=== PATIENT | male | born 1985 | race Caucasian/White ===

== ENCOUNTER 2017-05-01 03:30 | Emergency (ER) | payer MEDICAID ==
[~2017-05-01] VITALS: Ht 180.3 cm; Wt 72.7 kg
[~2017-05-01 03:30] MED LIST: NO HOME MEDS
[2017-05-01] MEDS ORDERED: naproxen 500mg tablet PO ONE (04:20)
[2017-05-01] MEDS ORDERED: sulfamethoxazole/trimethoprim DS (800/160mg) tablet PO ONE (04:20)
[2017-05-01] MEDS ORDERED: HYDROcodone/acetaminophen 10/325mg tab PO ONE (04:20)
[2017-05-01] MEDS ORDERED: HYDR-569 PO (04:48)
[2017-05-01] MEDS ORDERED: SULF1TAB48 PO (04:48)
[2017-05-01] MEDS ORDERED: NAPR-56 PO (04:48)
[2017-05-01 05:07] VITALS: BP 109/64
== END 2017-05-01 05:11 | disposition home or self-care (01) ==
LOC: ER 03:30
DX: L02.512 Cutaneous abscess of left hand (principal); F12.10 Cannabis abuse, uncomplicated; F11.10 Opioid abuse, uncomplicated; F15.10 Other stimulant abuse, uncomplicated
CPT/HCPCS: 26010; 99284; A6449

== ENCOUNTER 2017-07-12 15:25 | Inpatient (IN) | payer MEDICAID ==
[~2017-07-12] VITALS: Ht 180.3 cm; Wt 155.0 kg
[~2017-07-12 15:25] MED LIST changes: +HYDR-569 PO
[2017-07-12 16:11] LABS: BASOPHILS % (AUTO) 0.3 % (0-1); EOSINOPHILS # (AUTO) 0.1 X10'3 (0-0.9); HEMATOCRIT 44.2 % (42.0-52.0); HEMOGLOBIN 14.9 g/dl (14.0-17.9); LYMPHOCYTES # (AUTO) 1.9 X10'3 (1.1-4.8); LYMPHOCYTES % (AUTO) 14.6 % (21-51); MEAN CORPUSCULAR HEMOGLOBIN 31.1 PG (27.0-31.0); MEAN CORPUSCULAR HGB CONC 33.7 % (33.0-36.5); MEAN CORPUSCULAR VOLUME 92.1 FL (78-98); MEAN PLATELET VOLUME 7.6 FL (7.4-10.4); MONOCYTES # (AUTO) 0.7 X10'3 (0-0.9); MONOCYTES % (AUTO) 5.8 % (2-12); NEUTROPHILS % (AUTO) 78.3 % (42-75); PLATELET COUNT 328 X10'3 (140-440); RED CELL DISTRIBUTION WIDTH 13.6 % (11.5-14.5); WHITE BLOOD COUNT 12.8 X10'3 (4.5-11.0)
[2017-07-12] MEDS ORDERED: CefTRIAXone/D5W-Rocephin 1gm 50 ML IV ONE (16:15)
[2017-07-12 16:25] LABS: ALANINE AMINOTRANSFERASE 156 U/L (12-78); ALBUMIN 3.4 G/DL (3.4-5.0); ALBUMIN/GLOBULIN RATIO 0.8 (1.1-1.5); ALKALINE PHOSPHATASE 123 IU/L (46-116); ANION GAP 5 (8-16); ASPARTATE AMINO TRANSFERASE 70 U/L (10-37); BILIRUBIN,TOTAL 0.3 MG/DL (0.1-1.0); BLOOD UREA NITROGEN 14 MG/DL (7-18); BUN/CREATININE RATIO 12.4 (5.4-32.0); CALCIUM 9.3 MG/DL (8.5-10.1); CHLORIDE 105 MMOL/L (99-107); CREATININE 1.13 MG/DL (0.60-1.10); GLUCOSE 106 MG/DL (70-104); POTASSIUM 4.1 MMOL/L (3.5-5.1); SODIUM 142 MMOL/L (135-145); TOTAL CARBON DIOXIDE 32.3 MMOL/L (24-32); TOTAL PROTEIN 7.7 G/DL (6.4-8.2); eGFR 76 ML/MIN
[2017-07-12] MEDS ORDERED: ceFAZolin 1GM/D5W- ADD-VANTAGE 50 ML IV ONE (16:26)
[2017-07-12] MEDS ORDERED: iohexol 300mg/ml 100ml inj. ONE (16:42)
[2017-07-12 16:45] LABS: CLARITY,URINE CLEAR (Clear); COLOR,URINE YELLOW (Yellow); GLUCOSE, URINE NEGATIVE (Neg); KETONES,URINE NEGATIVE (Neg); LEUKOCYTE ESTERASE ,URINE NEGATIVE (Neg); NITRITES, URINE NEGATIVE (Neg); OCCULT BLOOD,URINE NEGATIVE (Neg); PROTEIN,URINE TRACE mg/dl (Neg)
[2017-07-12 16:45] LABS: INR 0.9 INR; PARTIAL THROMBOPLASTIN TIME 27 SECONDS (22-32); PROTHROMBIN TIME 9.4 SECONDS (9.0-12.0)
[2017-07-12 16:46] LABS: UA COLLECTION TYPE CLN CATCH MIDSTREAM
[2017-07-12 16:56] LABS: BACTERIA,URINE NONE SEEN /HPF (Neg); MUCUS STRANDS MODERATE /LPF (Neg); RBC,URINE 0-2 /HPF (0-2); SQUAMOUS EPITHELIAL CELL,UR FEW /LPF (FEW); WBC,URINE 0-4 /HPF (0-4)
[2017-07-12] MEDS ORDERED: CEPH500C5 PO (17:59)
[2017-07-12] MEDS ORDERED: DOXY100C2 PO (17:59)
[2017-07-12] MEDS ORDERED: vancomycin inj 1,000 MG in normal saline 250ml IV soln 250 ML IV STA (21:05)
[2017-07-12] MEDS ORDERED: vancomycin/NS 1 GM ADD-VANTAGE 250 ML X 1 DOSE IV ONE (21:10)
[2017-07-12] MEDS ORDERED: mag hydrox/Alum hydrox/simeth 30ml oral suspension PO PRN (22:55)
[2017-07-12] MEDS ORDERED: bisacodyl 10mg suppository rectal RC PRN (22:55)
[2017-07-12] MEDS ORDERED: ondansetron/PF 4mg/2ml inj IV PRN (22:55)
[2017-07-12] MEDS ORDERED: morphine 4 MG/ML inj SYRINge IV PRN (22:55)
[2017-07-12] MEDS ORDERED: acetaminophen 325mg tablet PO PRN (22:55)
[2017-07-12] MEDS ORDERED: magnesium hydroxide 30ml (MOM) UD suspension PO PRN (22:55)
[2017-07-12] MEDS: HYDROcodone/acetaminophen 5mg/325mg tablet PO PRN (23:02)
[2017-07-12] MEDS: dextrose 5%-1/2 normal saline 1,000 ML IV SCH (23:02)
[2017-07-13] VITALS: BP 112/74
[2017-07-13] MEDS: dextrose 5%-1/2 normal saline 1,000 ML IV SCH ×2 (01:35→14:46)
[2017-07-13 06:02] LABS: BASOPHILS % (AUTO) 0.4 % (0-1); EOSINOPHILS # (AUTO) 0.3 X10'3 (0-0.9); EOSINOPHILS % (AUTO) 2.6 % (0-6); HEMOGLOBIN 14.9 g/dl (14.0-17.9); LYMPHOCYTES # (AUTO) 2.1 X10'3 (1.1-4.8); LYMPHOCYTES % (AUTO) 21.4 % (21-51); MEAN CORPUSCULAR HEMOGLOBIN 31.3 PG (27.0-31.0); MEAN CORPUSCULAR HGB CONC 33.9 % (33.0-36.5); MEAN CORPUSCULAR VOLUME 92.3 FL (78-98); MEAN PLATELET VOLUME 7.9 FL (7.4-10.4); MONOCYTES % (AUTO) 9.8 % (2-12); NEUTROPHILS # (AUTO) 6.5 X10'3 (1.8-7.7); NEUTROPHILS % (AUTO) 65.8 % (42-75); PLATELET COUNT 303 X10'3 (140-440); RED BLOOD COUNT 4.77 X10'6 (4.70-6.10); RED CELL DISTRIBUTION WIDTH 13.4 % (11.5-14.5); WHITE BLOOD COUNT 9.9 X10'3 (4.5-11.0)
[2017-07-13 06:13] LABS: ALBUMIN 3.1 G/DL (3.4-5.0); ANION GAP 6 (8-16); BLOOD UREA NITROGEN 13 MG/DL (7-18); BUN/CREATININE RATIO 13.8 (5.4-32.0); CALCIUM 9.2 MG/DL (8.5-10.1); CHLORIDE 103 MMOL/L (99-107); CREATININE 0.94 MG/DL (0.60-1.10); GLUCOSE 100 MG/DL (70-104); POTASSIUM 4.2 MMOL/L (3.5-5.1); SODIUM 139 MMOL/L (135-145); TOTAL CARBON DIOXIDE 29.9 MMOL/L (24-32); eGFR > 90 ML/MIN
[2017-07-13] MEDS: CefTRIAXone/D5W-Rocephin 1gm 50 ML IV SCH (07:21)
[2017-07-13] MEDS: docusate sod 100mg capsule PO SCH ×2 (07:21→20:01)
[2017-07-13] MEDS ORDERED: NO HOME MEDS (07:26)
[2017-07-13 08:00] VITALS: BP 141/97
[2017-07-13 11:32] VITALS: BP 125/64
[2017-07-13] MEDS ORDERED: LIDOcaine 1%/PF (10mg/ml) 5ml vial SQ ONE (15:40)
[2017-07-13] MEDS ORDERED: LIDOcaine 1%/PF (10mg/ml) 5ml vial ONE (15:45)
[2017-07-13 16:04] VITALS: BP 125/64
[2017-07-13 16:10] VITALS: BP 116/71
[2017-07-13 19:00] VITALS: BP 137/81
[2017-07-13] MEDS: HYDROcodone/acetaminophen 5mg/325mg tablet PO PRN (20:01)
[2017-07-14] VITALS: BP 134/82
[2017-07-14] MEDS: dextrose 5%-1/2 normal saline 1,000 ML IV SCH (02:32)
[2017-07-14] MEDS: HYDROcodone/acetaminophen 5mg/325mg tablet PO PRN (06:50)
[2017-07-14 07:10] VITALS: BP 119/86
[2017-07-14] MEDS ORDERED: VANCOMYCIN LEVEL IV ONE (07:30)
[2017-07-14] MEDS: CefTRIAXone/D5W-Rocephin 1gm 50 ML IV SCH (07:33)
[2017-07-14] MEDS: docusate sod 100mg capsule PO SCH (07:33)
[2017-07-14] MEDS ORDERED: lactobacillus rhamnosus 10,000 MMU CELLS/CAPSULE PO SCH (08:00)
[2017-07-14 08:16] LABS: HIV ANTIBODY 1&2 RAPID NON-REACTIVE (Neg)
[2017-07-14 08:32] LABS: BASOPHILS % (AUTO) 0.3 % (0-1); EOSINOPHILS # (AUTO) 0.2 X10'3 (0-0.9); EOSINOPHILS % (AUTO) 2.8 % (0-6); HEMOGLOBIN 15.6 g/dl (14.0-17.9); LYMPHOCYTES # (AUTO) 1.4 X10'3 (1.1-4.8); LYMPHOCYTES % (AUTO) 19.8 % (21-51); MEAN CORPUSCULAR HEMOGLOBIN 31.4 PG (27.0-31.0); MEAN CORPUSCULAR VOLUME 92.2 FL (78-98); MEAN PLATELET VOLUME 7.1 FL (7.4-10.4); MONOCYTES # (AUTO) 0.4 X10'3 (0-0.9); NEUTROPHILS # (AUTO) 4.9 X10'3 (1.8-7.7); NEUTROPHILS % (AUTO) 71.1 % (42-75); PLATELET COUNT 330 X10'3 (140-440); RED BLOOD COUNT 4.99 X10'6 (4.70-6.10); RED CELL DISTRIBUTION WIDTH 13.6 % (11.5-14.5); WHITE BLOOD COUNT 6.9 X10'3 (4.5-11.0)
[2017-07-14 08:44] LABS: ALBUMIN 3.1 G/DL (3.4-5.0); ANION GAP 10 (8-16); BLOOD UREA NITROGEN 13 MG/DL (7-18); BUN/CREATININE RATIO 12.1 (5.4-32.0); CALCIUM 8.9 MG/DL (8.5-10.1); CHLORIDE 102 MMOL/L (99-107); CREATININE 1.07 MG/DL (0.60-1.10); GLUCOSE 190 MG/DL (70-104); SODIUM 137 MMOL/L (135-145); TOTAL CARBON DIOXIDE 25.1 MMOL/L (24-32); eGFR 81 ML/MIN
[2017-07-14] MEDS ORDERED: nicotine 21mg patch - 24 hr TD SCH (10:22)
[2017-07-14 12:38] VITALS: BP 118/68
[2017-07-14] MEDS ORDERED: AMOX-422 PO (13:57)
[2017-07-15] MEDS ORDERED: VANCOMYCIN LEVEL IV ONE
== END 2017-07-14 16:17 | disposition home or self-care (01) | DRG 720 ==
LOC: ER 15:26 → ED HOLD 22:51 → SUR 3N 23:55
PROVIDERS: ADMIT Emergency Medicine; ATTEND Internal Medicine
PROC: BP2T1ZZ Computerized Tomography (CT Scan) of Right Upper Extremity using Low Osmolar Contrast (ICD-10-PCS; principal; 2017-07-12)
PROC: 0H9DXZX Drainage of Right Lower Arm Skin, External Approach, Diagnostic (ICD-10-PCS; 2017-07-13)
DX: A41.9 Sepsis, unspecified organism (principal); Z68.42 Body mass index [BMI] 45.0-49.9, adult; F15.10 Other stimulant abuse, uncomplicated; F12.90 Cannabis use, unspecified, uncomplicated; L03.113 Cellulitis of right upper limb; L02.413 Cutaneous abscess of right upper limb; M19.90 Unspecified osteoarthritis, unspecified site; Z87.891 Personal history of nicotine dependence; Z71.51 Drug abuse counseling and surveillance of drug abuser
CPT/HCPCS: 10160; 36415; 73201; 76942; 80048; 80053; 80202; 81001; 84145; 85025; 85610; 85730; 86703; 86803; 87040; 87070; 87077; 87186; 93306; 96365; 96366; 96368; 99285; J0690; J0696; J2001; J3370; J7030; Q9967

== ENCOUNTER 2022-01-08 16:43 | Emergency (ER) | payer MEDICAID ==
[~2022-01-08] VITALS: Ht 180.3 cm; Wt 77.3 kg
[2022-01-08 16:54] VITALS: BP 107/59
== END 2022-01-08 21:21 | disposition left against medical advice (07) ==
LOC: ER 16:44
DX: R06.02 Shortness of breath (principal); R42 Dizziness and giddiness; Z53.21 Procedure and treatment not carried out due to patient leaving prior to being seen by health care provider
CPT/HCPCS: 93005